=== PATIENT | female | born 1970 | race African-American/Black ===

== ENCOUNTER 2021-12-25 09:20 | Emergency (ER) | payer MEDICAID ==
[~2021-12-25] VITALS: Ht 170.2 cm; Wt 97.1 kg
--- NOTE | 2021-12-25 10:01 | NUR ---
1st contact with patient, AOx4. Patient said, "Can I have another hospital socks?" She is calm and breathing easily, moving all extremities, NAD, pending MD evaluation.
--- NOTE | 2021-12-25 10:03 | NUR ---
2 pairs of hospital socks were given. Patient is c/o bilateral ankle pains for about a month. Patient has been to multiple ER departments ([facility] last 12/17/21, [facility] last 12/12/21, [facility] last 11/20/21) for same problem as reported by [facility] alert system.
[2021-12-25 10:37] LABS: HEMATOCRIT 36.7 % (31.2-41.9); MEAN CORPUSCULAR HEMOGLOBIN 29.8 uug (24.7-32.8); PLATELET COUNT (AUTO) 155 K/uL (179-408)
[2021-12-25 10:54] LABS: CREATININE 0.8 mg/dL (0.6-1.3); POTASSIUM 3.9 mmol/L (3.5-5.1)
--- NOTE | 2021-12-25 11:07 | NUR ---
Patient is resting comfortably on gurney with eyes closed, NAD, pending results & disposition.
[2021-12-25 11:08] LABS: BILIRUBIN,DIRECT 0.1 mg/dL (0.0-0.2); BILIRUBIN,TOTAL 0.2 mg/dL (0.2-1.0); TOTAL PROTEIN, SERUM 7.1 g/dL (6.4-8.2)
--- NOTE | 2021-12-25 11:33 | NUR ---
Patient discharged to home in stable condition with brisk steady gait. Written and verbal after care instructions given to patient. Patient verbalized understanding and compliance of instructions. Stressed follow up with health clinics (written & provided by MD) or return to ER for worsening s/s.
--- NOTE | 2021-12-25 12:19 | NUR ---
All of the stapled discharge papers and tests' results were seen in the bathroom's trash basket. notified.
== END 2021-12-25 11:37 | disposition home or self-care (01) ==
LOC: ER 09:20
DX: R60.0 Localized edema (principal)
CPT/HCPCS: 36415; 85025; A4663